=== PATIENT | female | born 1980 | race Caucasian/White ===

== ENCOUNTER 2016-05-28 15:53 | Emergency (ER) | payer OTHER ==
[2016-05-28 17:49] LABS: AGAP 12; ALBUMIN 4.3 g/dL (3.5-5.0); ALKALINE PHOSPHATASE 46 U/L (32-104); AMYLASE 48 U/L (20-200); BUN 9 mg/dL (8-22); CALCIUM 8.8 mg/dL (8.8-10.2); CHLORIDE 103 mmol/L (98-107); COSMO 277; GOT 14 U/L (10-30); GPT 11 U/L (10-36); LIPASE 40 U/L (13-60); POTASSIUM 4.2 mmol/L (3.5-5.1); SODIUM 140 mmol/L (136-145); TCO2 25 mmol/L (25-35); TOTAL BILIRUBIN 0.42 mg/dL (0.20-1.00)
[2016-05-28 18:30] LABS: MANUAL DIFF NEEDED? NO
[2016-05-28 18:34] LABS: BASO% 0.7 % (0.0-0.8); EOS# 0.21 X1000 (0.0-0.7); EOS% 2.8 % (0.0-10.0); HEMATOCRIT 39.3 % (37.0-47.0); HEMOGLOBIN 13.3 g/dL (12.0-16.0); IMM GRAN# 0.02 X1000 (0.0-0.04); IMM GRAN% 0.3 % (0.0-0.5); LYMPH# 2.16 X1000 (1.2-3.4); MCH 30.2 PG (27-31); MCHC 33.8 g/dL (33-37); MCV 89.3 FL (81-99); MONO# 0.45 X1000 (0.11-0.59); MPV 11.9 FL (7.4-10.4); NEUT% 61.2 % (42.2-75.2); PLT 216 X1000 (130-400)
[2016-05-28 19:15] LABS: URINE CULTURE NEEDED? NO; URINE MICRO REVIEW NEEDED? NO; URINE SOURCE CLEAN CATCH
[2016-05-28 19:19] LABS: BILIRUBIN URINE NEGATIVE (NEGATIVE); BLOOD URINE NEGATIVE (NEGATIVE); COLOR YELLOW; GLUCOSE URINE NEGATIVE (NEGATIVE); LEUKOCYTES URINE NEGATIVE (NEGATIVE); NITRITE URINE NEGATIVE (NEGATIVE); PROTEIN URINE NEGATIVE (NEGATIVE); SP GRAVITY URINE 1.016; TURBIDITY URINE CLEAR (CLEAR); UR EPITHELIAL CELLS <10 /HPF (<10); URINE BACTERIA NEGATIVE /HPF; URINE RBC <10 /HPF (<10); URINE WBC <10 /HPF (<10); UROBILINOGEN URINE NORMAL (NORMAL)
--- NOTE | 2016-05-28 19:31 | PROVIDER DOCUMENTATION ---
HPI-Abdominal Pain/GI Problem <Musa Vernon - Last Filed: 05/28/16 19:26> - General Source: patient - History of Present Illness-ABD Abdominal Pain Onset Location: reports: RLQ Pain Radiation: reports: no radiation Quality of Pain: reports: aching Severity in ED: reports: mild Onset/Duration: reports: 1 week ago Timing: reports: still present Activities at Onset: reports: none Modifying Factors: improves with: nothing Associated Symptoms: reports: loss of appetite, nausea Bruising or Bleeding Gums?: No Similar Symptoms Previously?: No Recently seen or treated by another doctor?: Yes <Elyse Myers - Last Filed: 05/28/16 23:18> - General Chief Complaint: Abdominal Pain Stated Complaint: CYST ON OVARY Time Seen by Provider: 05/28/16 18:48 Allergies/Adverse Reactions: Patient Allergies Allergy/AdvReac Type Severity Reaction Status Date / Time ondansetron HCl * Allergy Severe ANAPHYLAXIS Verified 05/28/16 19:40 [From Zofran] sumatriptan [From Imitrex] Allergy Severe ANAPHYLAXIS Verified 05/28/16 19:40 sumatriptan succinate * Allergy Severe ANAPHYLAXIS Verified 05/28/16 19:40 [From Imitrex] latex Allergy Intermediate HIVES Verified 05/28/16 19:40 Home Medications: Omeprazole [Prilosec] 40 mg PO HS 05/28/16 Promethazine [Phenergan] 25 mg PO Q4H PRN PRN 05/28/16 - History of Present Illness-ABD Nature of Presenting Problems: 35 year old WF presents with c/o RUQ abd pain radiating to right flank, pt reports she has a 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 She reports last week she was evaluated by her PMD for her chronic abd pain, she was referred to a surgeon in [place], received a CT scan, her pancrease was normal but they found a right ovarian cyst. pt reports he awoke with this new sharp, stabbing abd pain that is different. She reports she ran out of her norco 2 days ago when the pain started. associated symptoms include nausea, subjective feve/chills. pt reports she has phenergan at home, she has been using and the nausea persists. (Musa Vernon) Review of Systems - Adult - REVIEW OF SYSTEMS - ADULT Constitutional: denies: chills, fever Eyes: reports: no symptoms reported Ears, Nose, Mouth & Throat: reports: no symptoms reported Cardiovascular: denies: chest pain, palpitations Respiratory: reports: no symptoms reported Gastrointestinal: reports: abdominal pain, nausea. denies: diarrhea, vomiting Genitourinary: denies: dysuria, hematuria, urinary retention Musculoskeletal: denies: bone pain, muscle aches, muscle weakness Integumentary: reports: no symptoms reported Neurological: denies: dizziness/vertigo, headache/migraines Psychiatric: reports: no symptoms reported Endocrine: reports: no symptoms reported Hematologic/Lymphatic: reports: no symptoms reported Allergic/Immunologic: reports: no symptoms reported All Other Systems: Reviewed and Negative <Elyse Myers - Last Filed: 05/28/16 23:18> Past History - Adult - PAST MEDICAL HISTORY-ADULT Major Childhood Illnesses: reports: denies history Cardiovascular: reports: denies history Respiratory: reports: denies history Gastrointestinal: reports: GERD, ulcer Obstetrical/Gynecological: reports: denies history Genitourinary: reports: denies history Musculoskeletal: reports: denies history Neurological: reports: headaches/migraines Endocrine/Immune: reports: denies history Other Conditions: reports: denies history Additional History: frequent ER visits - PRIOR SURGERIES/PROCEDURES Surgical/Procedure History: reports: cholecystectomy, hysterectomy, BTL, C- section, tonsillectomy, other (sphincterectomy) - IMMUNIZATION STATUS Childhood Immunizations: See Nurse Assessment Flu Vaccine: See Nurse Assessment - FAMILY HISTORY Family History: reviewed, not pertinent <Musa Vernon - Last Filed: 05/28/16 19:26> - PAST MEDICAL HISTORY-ADULT Review of Records: reports: Nursing Assessment Review, Medications Reviewed Major Childhood Illnesses: reports: denies history Gastrointestinal: reports: GERD - PRIOR SURGERIES/PROCEDURES Surgical/Procedure History: reports: cholecystectomy, hysterectomy, BTL, C- section, tonsillectomy, other (ERCP) - IMMUNIZATION STATUS Childhood Immunizations: See Nurse Assessment Flu Vaccine: See Nurse Assessment - SOCIAL HISTORY Smoking: non-smoker Substance Use: none/never Alcohol Use Frequency: never <Elyse Myers - Last Filed: 05/28/16 23:18> Physical Exam-General - PHYSICAL EXAM-ADULT Initial Vital Signs Reviewed: Yes - CONSTITUTIONAL General Appearance: appears well, alert, no apparent distress - RESPIRATORY Respiratory: chest non-tender, lungs clear, normal breath sounds - CARDIOVASCULAR Cardiovascular: normal peripheral pulses, regular rate, rhythm, no edema - GASTROINTESTINAL (ABDOMEN) Abdominal Exam: normal bowel sounds, soft, tenderness (RLQ), other (positive heel slap) - SKIN Integumentary: normal color, normal turgor, warm/dry - PSYCHIATRIC Psych/Mental Status: normal mood/affect, normal thought content, normal thought process, oriented x 3 <Elyse Myers - Last Filed: 05/28/16 23:18> Progress <Musa Vernon - Last Filed: 05/28/16 19:26> - CT/MRI 1 CT Study: Abdomen, Pelvis Impression: Normal CT Results: negative <Elyse Myers - Last Filed: 05/28/16 23:18> - PLAN OF CARE/RESULTS Progress/Plan/Lab Results: plan of care: imaging, labs, medications Orders Category Date Time Status ABDOMEN/PELVIS W/O CONTRAST [CT] Stat Exams 05/28/16 22:30 Taken AMYLASE [CHEM] Stat Lab 05/28/16 16:50 Completed CBC WITH ELECTRONIC DIFF [HEME] Stat Lab 05/28/16 16:54 Completed COMPREHENSIVE METABOLIC PANEL [CHEM] Stat Lab 05/28/16 16:50 Completed LIPASE [CHEM] Stat Lab 05/28/16 16:50 Completed URINALYSIS W/POSS RFLX CULT [URINALYSIS] Stat Lab 05/28/16 17:20 Completed Hydrocodone/APAP 10 mg/325 mg [Ulmer-10] Med 05/28/16 22:29 Discontinued 1 each PO NOW ONE Promethazine [Phenergan] Med 05/28/16 22:30 Discontinued 25 mg PO NOW ONE Laboratory Tests 05/28/16 05/28/16 05/28/16 16:50 16:54 17:20 WBC 7.45 RBC 4.40 Hgb 13.3 Hct 39.3 MCV 89.3 MCH 30.2 MCHC 33.8 RDW Std Deviation 12.6 Plt Count 216 MPV 11.9 H Immature Gran % (Auto) 0.3 Neut % (Auto) 61.2 Lymph % (Auto) 29.0 [place] % (Auto) 6.0 Eos % (Auto) 2.8 Baso % (Auto) 0.7 Immature Gran # (Auto) 0.02 Neut # (Auto) 4.56 Lymph # (Auto) 2.16 [place] # (Auto) 0.45 Eos # (Auto) 0.21 Baso # (Auto) 0.05 Sodium 140 Potassium 4.2 Chloride 103 Carbon Dioxide 25 Anion Gap 12 BUN 9 Creatinine 0.7 Estimated GFR/1.73 m2 > 60 BUN/Creatinine Ratio 13 Glucose 87 Calculated Osmolality 277 Calcium 8.8 Total Bilirubin 0.42 AST 14 ALT 11 Alkaline Phosphatase 46 Total Protein 7.0 Albumin 4.3 Globulin 2.7 Albumin/Globulin Ratio 1.6 Amylase 48 Lipase 40 Urine Source CLEAN CATCH Urine Color YELLOW Urine Turbidity CLEAR Urine pH 6.0 Ur Specific [place] 1.016 Urine Protein NEGATIVE Ur Glucose (Stick) NEGATIVE Ur Ketones (Stick) NEGATIVE Urine Blood NEGATIVE Urine Nitrite NEGATIVE Urine Bilirubin NEGATIVE Urobilinogen Dipstick NORMAL Urine Leukocytes NEGATIVE Urine WBC (Auto) <10 Urine RBC (Auto) <10 U Epithel Cells (Auto) <10 Urine Bacteria (Auto) NEGATIVE Vital Signs - 24 hr 05/28/16 16:40 Temperature 98.1 F Pulse Rate 81 Respiratory 16 Rate Blood Pressure 118/57 O2 Sat by Pulse 100 Oximetry Pt given results and will be d/c home w/o rx to follow up with PCP. Pt verbally understood instructions. PT remained clinically stable throughout the course of the ED stay and will return if symptoms worsen. (Elyse Myers) Departure <Musa Vernon - Last Filed: 05/28/16 19:26> - Departure Time of Disposition Order: 23:18 Certified Medical Emergency: Emergent <Elyse Myers - Last Filed: 05/28/16 23:18> - Departure DIAGNOSIS: Abdominal pain Qualifiers: Abdominal location: right lower quadrant Qualified Code(s): R10.31 - Right lower quadrant pain Disposition: HOME 01 Condition: Good Additional Instructions: Follow up with primary care doctor. Return to ED for any new or worsening symptoms. ED Follow Up Instructions: You have been treated by a care provider in the Emergency Department. These instructions are being provided to you so you can have an understanding of how to care for yourself upon discharge. Upon discharge from the Emergency Department, you are responsible for making arrangements for follow-up care by a physician of your choice. Take all prescribed medications as directed. Return to the Emergency Department immediately for any new or worsening symptoms. You may call the Physician Referral phone number at [phone] to obtain a list of Physicians who are taking new patients. Referrals: Juan Parsons MD [Primary Care Provider] - Attestation - Scribe Verification/Attestation Scribe:: Elyse Myers Acting as Scribe for:: Chuckie Clemons Scribe documention review:: This chart was documented by a scribe and accurately reflects the service the provider performed and the decisions made by the provider. <Elyse Myers - Last Filed: 05/28/16 23:18> Physician Attestation - Physician Attestation I, the provider, attest to the following statement:: Chuckie Clemons Physician documentation Attestation:: This documentation recorded by the scribe accurately reflects the service I personally performed and the decisions made by me. <Elyse Myers - Last Filed: 05/28/16 23:18>
[2016-05-28] MEDS ORDERED: NORCO-10 PO ONE (22:29)
[2016-05-28] MEDS ORDERED: PHENERGAN PO ONE (22:30)
[2016-05-28 23:35] VITALS: BP 135/77
--- NOTE | 2016-05-29 09:45 | Diag Imaging Result Document ---
PROCEDURE NAME: ABDOMEN/PELVIS W/O CONTRAST - 05/28/2016 CT ABDOMEN AND PELVIS WITHOUT CONTRAST: No contrast administered per request of the referring provider. A dose-reduction protocol was used. COMPARISON: Compared with a with contrast exam of 04/09/2014. FINDINGS: The patient, by history, is status post recent hysterectomy. The visualized lung bases are clear. There are no substantial abnormalities of the liver, spleen, adrenal glands, or pancreas identified. The gallbladder is surgically absent. The bilateral kidneys are unremarkable. There is no evidence of renal stone or hydronephrosis. There is no evidence of bowel obstruction. The appendix is unremarkable. There is no abscess identified. There is no free air. There is no substantial free fluid. Images of the pelvis, otherwise, show postsurgical changes of partial hysterectomy. There is no pelvic hematoma, mass, or abscess identified. IMPRESSION: No evidence of acute disease in the abdomen or pelvis. No bowel obstruction. No abscess. No hydronephrosis. A [facility] physician provided preliminary results at 11:03 p.m. on 05/28/2016.
== END 2016-05-28 23:35 | disposition home or self-care (01) ==
LOC: ED 15:53
DX: R10.11 Right upper quadrant pain (principal); R11.0 Nausea; K21.9 Gastro-esophageal reflux disease without esophagitis; R51 Headache; Z79.899 Other long term (current) drug therapy
CPT/HCPCS: 74176; 80053; 81001; 82150; 83690; 85025